=== PATIENT | male | born 2000 | race African-American/Black ===

== ENCOUNTER 2022-04-19 14:43 | Emergency (ER) | payer MEDICAID ==
[~2022-04-19] VITALS: Ht 172.7 cm; Wt 88.9 kg
[2022-04-19 14:51] VITALS: BP 153/80
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
--- NOTE | 2022-04-19 14:54 | NUR ---
PT AMBULATED TO LOBBY
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
[2022-04-19] MEDS ORDERED: IBUP-1842 PO (15:40)
[2022-04-19] MEDS ORDERED: ONDA-188 PO (15:41)
[2022-04-19 16:04] VITALS: BP 138/82
--- NOTE | 2022-04-19 16:05 | NUR ---
Patient discharged with v/s stable. Written and verbal after care instructions given and explained. Patient verbalized understanding. Ambulatory with steady gait. All questions addressed prior to discharge. Advised to follow up with PMD.
== END 2022-04-19 16:05 | disposition home or self-care (01) ==
LOC: MED 14:43
DX: S06.0X9A Concussion with loss of consciousness of unspecified duration, initial encounter (principal); Z79.899 Other long term (current) drug therapy; Y04.2XXA Assault by strike against or bumped into by another person, initial encounter; Y93.89 Activity, other specified; Y92.89 Other specified places as the place of occurrence of the external cause; Y99.8 Other external cause status
CPT/HCPCS: 99283